=== PATIENT | female | born 1995 | race Caucasian/White ===

== ENCOUNTER → 2018-11-11 | Outpatient (REF) | payer OTHER | LOC: M SFHCLERA 20:51 | PROVIDERS: ATTEND Physician Assistant | DX: R10.84 Generalized abdominal pain (principal) ==

== ENCOUNTER → 2018-11-11 | Outpatient (CLI) | payer OTHER, SELFPAY ==
--- NOTE | 2018-11-12 07:14 | REP ---
ABDOMEN SUPINE: 11/11/2018. Clinical history: Abdominal pain. Findings: Two views encompass the entirety of the abdomen/pelvis were provided. Stool and gas scattered in the colon from cecum to sigmoid without abnormal dilated loops. No abnormal soft-tissue calcification or mass. Bones without acute finding. Tiny pelvic phlebolith in the deep pelvis on the left. Impression: 1. Nonspecific gas pattern without obstruction, mass, abnormal calcification or other acute finding. Electronically Signed by Buzz Coon MD 11/12/2018 08:17 A
== END ==
LOC: M LRY 18:21
PROVIDERS: ATTEND Physician Assistant
DX: R14.0 Abdominal distension (gaseous) (principal)
CPT/HCPCS: 74018; 81002; 81025; 87086; G0463

== ENCOUNTER 2021-02-25 13:38 | Emergency (ER) | payer OTHER ==
[~2021-02-25] VITALS: Ht 157.5 cm; Wt 59.2 kg
[2021-02-25 14:31] LABS: BASO # 0.1 10^3/uL (0.0-0.2); BASO % 0.6 % (0.0-1.0); EOS # 0.1 10^3/uL (0.0-0.5); HEMATOCRIT 42.7 % (36.0-47.0); HEMOGLOBIN 13.9 g/dl (12.0-15.5); LYMPH % 23.5 % (24.0-44.0); MEAN CORPUSCULAR HEMOGLOBIN 29.1 pg (27.0-33.0); MEAN CORPUSCULAR HGB CONC 32.6 g/dl (32.0-36.5); MEAN CORPUSCULAR VOLUME 89.5 fl (80.0-96.0); MONO # 0.7 10^3/uL (0.0-0.8); MONO % 7.7 % (2.0-8.0); NEUTROPHILS # 5.6 10^3/uL (1.5-8.5); NEUTROPHILS % 67.1 % (36.0-66.0); PLATELET COUNT, AUTOMATED 249 10^3/uL (150-450); RED BLOOD COUNT 4.77 10^6/uL (4.00-5.40); WHITE BLOOD COUNT 8.4 10^3/uL (4.0-10.0)
[2021-02-25 14:53] LABS: ALT/SGPT 22 U/L (12-78); BILIRUBIN,TOTAL 0.4 MG/DL (0.2-1.0); BLOOD UREA NITROGEN 8 MG/DL (7-18); CALCIUM LEVEL 9.3 MG/DL (8.5-10.1); CARBON DIOXIDE LEVEL 28 MEQ/L (21-32); CHLORIDE LEVEL 106 MEQ/L (98-107); CREATININE FOR GFR 0.83 MG/DL (0.55-1.30); GLOMERULAR FILTRATION RATE > 60.0 (>60); GLUCOSE, FASTING 87 MG/DL (70-100); POTASSIUM SERUM 3.9 MEQ/L (3.5-5.1); SODIUM LEVEL 141 MEQ/L (136-145); TOTAL PROTEIN 7.5 GM/DL (6.4-8.2)
[2021-02-25 15:00] LABS: HCG, SERUM QUALITATIVE NEGATIVE (NEGATIVE)
[2021-02-25 15:41] LABS: APPEARANCE, URINE HAZY (CLEAR); BACTERIA, URINE AUTO 1+ (NEGATIVE); BILIRUBIN, URINE AUTO NEGATIVE (NEGATIVE); BLOOD, URINE BLOOD 2+ (NEGATIVE); COLOR, URINE STRAW (YELLOW); GLUCOSE, URINE (UA) AUTO NEGATIVE (NEGATIVE); KETONE, URINE AUTO NEGATIVE (NEGATIVE); LEUKOCYTE ESTERASE, URINE AUTO 3+ (NEGATIVE); NITRITE, URINE AUTO NEGATIVE (NEGATIVE); PROTEIN, URINE AUTO NEGATIVE (NEGATIVE); RBC, URINE AUTO 4 /HPF (0-3); SQUAMOUS EPITHELIAL CELL UR AU 0 /HPF (0-6); UROBILINOGEN, URINE AUTO 0.2 mg/dL (0.0-2.0); WBC, URINE AUTO 11 /HPF (0-3)
[2021-02-25] MEDS ORDERED: CEFDINIR 300 MG CAP (OMNICEF) PO ONE (18:55)
[2021-02-25] MEDS ORDERED: PHENAZOPYRIDINE 100 MG TAB PO ONE (18:55)
[2021-02-25] MEDS ORDERED: CEFD300C41 PO (19:02)
[2021-02-25] MEDS ORDERED: PYRI1TAB5 PO (19:02)
[2021-02-25 19:18] VITALS: BP 129/74
== END 2021-02-25 19:23 | disposition home or self-care (01) ==
LOC: M ED 13:38
DX: N10 Acute pyelonephritis (principal); N39.0 Urinary tract infection, site not specified